=== PATIENT | female | born 1935 | race Caucasian/White ===

== ENCOUNTER 2023-06-18 14:46 | Observation (INO) ==
[2023-06-18] MEDS: Lactated Ringers 1000 ml BAG 1,000 ML IV ONE ×3 (16:42→21:24)
[2023-06-18] MEDS: Ondansetron 4 mg VIAL 2 MG/ML 2 ml VIAL IV ONE (16:44)
[2023-06-18 17:01] LABS: ABS Lymphocytes 0.6 10^3/uL (1.0-4.8); ABS Monocytes 0.3 10^3/uL (0.0-0.9); ABS Neutrophils 8.4 10^3/uL (1.5-7.6); ABS Nucleated RBC 0.02 10^3/ul; Hematocrit 44.8 % (35-45); Hemoglobin 15.5 g/dL (11.5-14.3); Lymphocyte % 6.3 %; Mean Corpuscular Hemoglobin 33.1 pg (27-33); Mean Corpuscular Hgb Conc 34.6 g/dL (31-36); Mean Corpuscular Volume 95.6 fL (80-97); Mean Platelet Volume 7.1 fL (7.5-11.2); Nucleated Red Blood Cells % 0.2 %/100WBC (0.0-0.8); Platelet Count 244 10^3/uL (150-450); Red Blood Count 4.69 10^6/uL (3.63-4.92); Red Cell Distribution Width 14.3 % (12-17); White Blood Count 9.3 10^3/uL (3.8-11.8)
[2023-06-18 17:26] LABS: High Sens Troponin Baseline 9 pg/mL (<15)
[2023-06-18 17:27] LABS: ALT 33 U/L (7-52); AST 44 U/L (13-39); Albumin 3.8 g/dL (3.2-5.2); Albumin/Globulin Ratio 1.2 (1-3); Alkaline Phosphatase 64 U/L (35-149); Anion Gap 12 mmol/L (2-16); Blood Urea Nitrogen 21 mg/dL (6-24); C Reactive Protein 9.15 mg/L (<8.01); CO2 Carbon Dioxide 23 mmol/L (22-32); Calcium 9.2 mg/dL (8.6-10.3); Chloride 103 mmol/L (101-111); Creatinine, Serum 1.01 mg/dL (0.51-0.95); Globulin 3.1 g/dL (2-4); Glucose 116 mg/dL (70-100); Magnesium 1.9 mg/dL (1.9-2.7); Potassium 4.6 mmol/L (3.5-5.0); Sodium 138 mmol/L (135-145); Total Bilirubin 0.8 mg/dL (0.2-1.0); Total Protein 6.9 g/dL (6.4-8.9); eGFR CKD-EPI 53.9 (>60)
[2023-06-18 17:50] LABS: Urine Appearance Turbid; Urine Bilirubin Negative (Negative); Urine Blood Trace (Negative); Urine Color Yellow; Urine Glucose Negative (Negative); Urine Ketones Negative (Negative); Urine Nitrite Negative (Negative); Urine Protein 1+ (>=30 mg/dL) (Negative); Urine Specific Gravity 1.018 (1.002-1.030); Urine Urobilinogen Negative (Negative)
[2023-06-18 18:15] LABS: Urine Bacteria 2+ /HPF (Absent); Urine Red Blood Cell 3+(>10/hpf) /HPF (0-Trace); Urine Squamous Epithelial Cell Present /HPF (Absent); Urine Transitional Epithelial Present /HPF (Absent); Urine White Blood Cell 3+(>20/hpf) /HPF (0-Trace)
[2023-06-18 18:43] LABS: High Sensitivity Troponin 1 Hr 8 pg/mL (<15)
[2023-06-18] MEDS: cefTRIAXone 1 gm/50 mL D5W 1 GM/50 ML BAG IV ONE (19:45)
[2023-06-18 23:39] LABS: Alcohol, S < 13 mg/dL (<13); Creatine Kinase 34 U/L (10-223)
[2023-06-19 06:12] LABS: Hematocrit 39.2 % (35-45); Hemoglobin 13.5 g/dL (11.5-14.3); Mean Corpuscular Hemoglobin 32.8 pg (27-33); Mean Corpuscular Hgb Conc 34.4 g/dL (31-36); Mean Corpuscular Volume 95.4 fL (80-97); Mean Platelet Volume 7.5 fL (7.5-11.2); Platelet Count 197 10^3/uL (150-450); Red Blood Count 4.11 10^6/uL (3.63-4.92); Red Cell Distribution Width 14.1 % (12-17); White Blood Count 9.1 10^3/uL (3.8-11.8)
[2023-06-19 06:32] LABS: Albumin 3.2 g/dL (3.2-5.2); Albumin/Globulin Ratio 1.2 (1-3); Calcium 8.4 mg/dL (8.6-10.3); Creatinine, Serum 0.86 mg/dL (0.51-0.95); Globulin 2.6 g/dL (2-4); Magnesium 1.8 mg/dL (1.9-2.7); Potassium 4.1 mmol/L (3.5-5.0); Total Bilirubin 0.9 mg/dL (0.2-1.0); Total Protein 5.8 g/dL (6.4-8.9); eGFR CKD-EPI 65.3 (>60)
[2023-06-19 09:48] VITALS: BP 100/65
[2023-06-19] MEDS: Magnesium Sulfate 2 gm BAG 2 GM/50 ML BAG IVPB ONE (10:14)
[2023-06-19] MEDS: cefTRIAXone 1 gm/50 mL D5W 1 GM/50 ML BAG IV ONE (11:36)
== END 2023-06-19 13:30 | disposition home or self-care (01) ==
LOC: EDHOLD 14:46 → ED 14:46 → SUATTDRO 19:37 → MEDTELE 21:43
PROVIDERS: ADMIT Internal Medicine; ATTEND Internal Medicine

== ENCOUNTER 2023-07-08 11:04 | Inpatient (IN) ==
[2023-07-08] MEDS: Lactated Ringers 1000 ml BAG 1,000 ML IV ONE ×2 (11:47→13:47)
[2023-07-08 12:21] LABS: ABS Lymphocytes 0.7 10^3/uL (1.0-4.8); ABS Monocytes 0.6 10^3/uL (0.0-0.9); ABS Neutrophils 5.2 10^3/uL (1.5-7.6); ABS Nucleated RBC 0.01 10^3/ul; Eosinophil % 0.1 %; Hematocrit 42.5 % (35-45); Hemoglobin 14.3 g/dL (11.5-14.3); Lymphocyte % 10.4 %; Mean Corpuscular Hgb Conc 33.8 g/dL (31-36); Mean Corpuscular Volume 97.8 fL (80-97); Mean Platelet Volume 6.8 fL (7.5-11.2); Nucleated Red Blood Cells % 0.1 %/100WBC (0.0-0.8); Platelet Count 212 10^3/uL (150-450); Red Blood Count 4.34 10^6/uL (3.63-4.92); Red Cell Distribution Width 15.6 % (12-17); White Blood Count 6.6 10^3/uL (3.8-11.8)
[2023-07-08 12:32] LABS: Activated Partial Thrombo Time 34.5 seconds (26.0-38.0); INR 1.26 (0.83-1.13)
[2023-07-08 12:51] LABS: Albumin 3.8 g/dL (3.2-5.2); Albumin/Globulin Ratio 1.4 (1-3); C Reactive Protein 16.97 mg/L (<8.01); Calcium 9.3 mg/dL (8.6-10.3); Creatinine, Serum 1.22 mg/dL (0.51-0.95); Globulin 2.8 g/dL (2-4); Total Bilirubin 1.2 mg/dL (0.2-1.0); Total Protein 6.6 g/dL (6.4-8.9)
[2023-07-08 13:06] LABS: Urine Appearance Turbid; Urine Bilirubin Negative (Negative); Urine Blood 2+ (Negative); Urine Color Yellow; Urine Glucose Negative (Negative); Urine Ketones Trace (Negative); Urine Nitrite Negative (Negative); Urine Protein Trace (Negative); Urine Specific Gravity 1.015 (1.002-1.030); Urine Urobilinogen 1+ (Negative); Urine pH 6.5 (5.0-8.0)
[2023-07-08] MEDS: Iodixanol (CONTRAST) 320 MG/ML 100 ML SDV IV ONE (13:13)
[2023-07-08 13:15] LABS: Urine Bacteria Absent /HPF (Absent); Urine Red Blood Cell 3+(>10/hpf) /HPF (0-Trace); Urine Squamous Epithelial Cell Present /HPF (Absent); Urine Transitional Epithelial Present /HPF (Absent); Urine White Blood Cell 3+(>20/hpf) /HPF (0-Trace)
[2023-07-08 14:40] LABS: High Sensitivity Troponin 1 Hr 9 pg/mL (<15)
[2023-07-08] MEDS ORDERED: Senna TAB 8.6 mg TAB PO PRN (17:28)
[2023-07-08] MEDS: Latanoprost 0.005% 2.5 ml BTL BOTH EYES SCH (21:01)
[2023-07-09 07:02] LABS: ABS Eosinophils 0.1 10^3/uL (0.0-0.5); ABS Lymphocytes 0.7 10^3/uL (1.0-4.8); ABS Monocytes 0.7 10^3/uL (0.0-0.9); ABS Neutrophils 5.6 10^3/uL (1.5-7.6); ABS Nucleated RBC 0.01 10^3/ul; Eosinophil % 0.8 %; Hematocrit 39.4 % (35-45); Hemoglobin 13.4 g/dL (11.5-14.3); Lymphocyte % 9.7 %; Mean Corpuscular Hemoglobin 32.9 pg (27-33); Mean Corpuscular Hgb Conc 33.9 g/dL (31-36); Mean Corpuscular Volume 97.1 fL (80-97); Mean Platelet Volume 6.9 fL (7.5-11.2); Nucleated Red Blood Cells % 0.1 %/100WBC (0.0-0.8); Platelet Count 177 10^3/uL (150-450); Red Blood Count 4.06 10^6/uL (3.63-4.92); Red Cell Distribution Width 15.2 % (12-17); White Blood Count 7.1 10^3/uL (3.8-11.8)
[2023-07-09] MEDS: Fluticasone NASAL SPRAY 50MCG 16 gm SPRAY BTL INTRANASAL SCH (08:34)
[2023-07-09 10:20] LABS: Anion Gap 12 mmol/L (2-16); Blood Urea Nitrogen 16 mg/dL (6-24); CO2 Carbon Dioxide 24 mmol/L (22-32); Calcium 8.2 mg/dL (8.6-10.3); Chloride 101 mmol/L (101-111); Glucose 109 mg/dL (70-100); Magnesium 1.9 mg/dL (1.9-2.7); Sodium 137 mmol/L (135-145); eGFR CKD-EPI 71.3 (>60)
[2023-07-09 12:41] LABS: Erythrocyte Sed Rate 26 mm/Hr (0-29)
[2023-07-09] MEDS ORDERED: Sulfur Hexaflouride MICROSPHR 25 MG VIAL ONE (13:05)
[2023-07-09 14:32] LABS: Rheumatoid Factor < 10 IU/mL (<15)
[2023-07-09 15:12] LABS: Free T4 1.48 ng/dL (0.61-1.12); TSH Ultra Thyroid Stim Horm 1.54 mcIU/mL (0.34-5.60)
[2023-07-10 06:14] LABS: Hematocrit 39.8 % (35-45); Hemoglobin 13.7 g/dL (11.5-14.3); Mean Corpuscular Hemoglobin 33.4 pg (27-33); Mean Corpuscular Hgb Conc 34.4 g/dL (31-36); Mean Corpuscular Volume 97.1 fL (80-97); Platelet Count 159 10^3/uL (150-450); Red Cell Distribution Width 15.4 % (12-17); White Blood Count 5.2 10^3/uL (3.8-11.8)
[2023-07-10 06:47] LABS: Calcium 8.6 mg/dL (8.6-10.3); Creatinine, Serum 0.9 mg/dL (0.51-0.95); Magnesium 1.9 mg/dL (1.9-2.7); Potassium 3.9 mmol/L (3.5-5.0); eGFR CKD-EPI 61.9 (>60)
[2023-07-10] MEDS: Potassium Chlor 10 meq TAB PO ONE (08:53)
[2023-07-10] MEDS: Lactated Ringers 1000 ml BAG 1,000 ML IV SCH (14:56)
[2023-07-11 06:19] LABS: ABS Eosinophils 0.1 10^3/uL (0.0-0.5); ABS Monocytes 0.8 10^3/uL (0.0-0.9); ABS Neutrophils 3.8 10^3/uL (1.5-7.6); ABS Nucleated RBC 0.01 10^3/ul; Eosinophil % 1.9 %; Hemoglobin 13.2 g/dL (11.5-14.3); Mean Corpuscular Hemoglobin 33.7 pg (27-33); Mean Corpuscular Hgb Conc 34.6 g/dL (31-36); Mean Corpuscular Volume 97.4 fL (80-97); Mean Platelet Volume 7.1 fL (7.5-11.2); Nucleated Red Blood Cells % 0.2 %/100WBC (0.0-0.8); Platelet Count 165 10^3/uL (150-450); Red Cell Distribution Width 15.6 % (12-17); White Blood Count 5.8 10^3/uL (3.8-11.8)
[2023-07-11 06:58] LABS: Calcium 8.6 mg/dL (8.6-10.3); Creatinine, Serum 0.95 mg/dL (0.51-0.95); Magnesium 1.9 mg/dL (1.9-2.7); Potassium 4.5 mmol/L (3.5-5.0)
[2023-07-11] MEDS: Magnesium Sulfate IV 1GM/100ML 1 GM/100 ML BAG IV ONE (08:19)
[2023-07-12] MEDS: Pneumococcal 20-Valent Conj 0.5 ML SYR Vaccine IM ONE (10:23)
[2023-07-14 06:17] LABS: Calcium 8.5 mg/dL (8.6-10.3); Creatinine, Serum 0.9 mg/dL (0.51-0.95); Magnesium 2.4 mg/dL (1.9-2.7); Potassium 4.6 mmol/L (3.5-5.0); eGFR CKD-EPI 61.9 (>60)
[2023-07-15 05:47] LABS: Calcium 8.6 mg/dL (8.6-10.3); Creatinine, Serum 0.98 mg/dL (0.51-0.95); Potassium 4.7 mmol/L (3.5-5.0); eGFR CKD-EPI 55.9 (>60)
[2023-07-15 10:14] VITALS: BP 106/62
== END 2023-07-15 14:06 | disposition home or self-care (01) | DRG 312 ==
LOC: ED 11:04 → EDHOLD 11:04 → SUATTDRO 16:24 → MED 19:17 → SUATTDRO 07-10 13:52 → MEDTELE 07-13 18:11
PROVIDERS: ADMIT Internal Medicine; ATTEND Internal Medicine

== ENCOUNTER 2023-12-11 13:43 | Observation (INO) ==
[2023-12-11 14:52] LABS: ABS Lymphocytes 0.8 10^3/uL (1.0-4.8); ABS Monocytes 0.7 10^3/uL (0.0-0.9); ABS Neutrophils 10.5 10^3/uL (1.5-7.6); Eosinophil % 0.1 %; Hematocrit 41.7 % (35-45); Hemoglobin 13.5 g/dL (11.5-14.3); Lymphocyte % 6.5 %; Mean Corpuscular Hemoglobin 33.3 pg (27-33); Mean Corpuscular Hgb Conc 32.4 g/dL (31-36); Mean Corpuscular Volume 102.6 fL (80-97); Mean Platelet Volume 7.5 fL (7.5-11.2); Platelet Count 182 10^3/uL (150-450); Red Blood Count 4.06 10^6/uL (3.63-4.92)
[2023-12-11 15:36] LABS: ALT 24 U/L (7-52); Albumin 2.6 g/dL (3.2-5.2); Albumin/Globulin Ratio 1.5 (1-3); Alkaline Phosphatase 30 U/L (35-149); Blood Urea Nitrogen 13 mg/dL (6-24); CO2 Carbon Dioxide 19 mmol/L (22-32); Chloride 119 mmol/L (101-111); Creatinine, Serum 0.62 mg/dL (0.51-0.95); Globulin 1.7 g/dL (2-4); Glucose 83 mg/dL (70-100); Sodium 146 mmol/L (135-145); Total Bilirubin 0.6 mg/dL (0.2-1.0); Total Protein 4.3 g/dL (6.4-8.9); eGFR CKD-EPI 85.6 (>60)
[2023-12-11 15:37] LABS: Anion Gap 8 mmol/L (2-16)
[2023-12-11 15:38] LABS: Calcium 5.8 mg/dL (8.6-10.3)
[2023-12-11 16:45] LABS: Anion Gap 10 mmol/L (2-16); Blood Urea Nitrogen 18 mg/dL (6-24); CO2 Carbon Dioxide 24 mmol/L (22-32); Chloride 109 mmol/L (101-111); Creatinine, Serum 0.97 mg/dL (0.51-0.95); Glucose 123 mg/dL (70-100); Sodium 143 mmol/L (135-145)
[2023-12-11 16:46] LABS: Calcium 8.4 mg/dL (8.6-10.3); Magnesium 1.7 mg/dL (1.9-2.7); eGFR CKD-EPI 56.2 (>60)
[2023-12-11 16:59] LABS: Urine Appearance Extra Turbid; Urine Bilirubin Negative (Negative); Urine Blood 2+ (Negative); Urine Glucose Negative (Negative); Urine Ketones Negative (Negative); Urine Nitrite 2+ (Negative); Urine Protein 2+ (>=100 mg/dL) (Negative); Urine Specific Gravity 1.016 (1.002-1.030); Urine Urobilinogen Negative (Negative); Urine pH 5.5 (5.0-8.0)
[2023-12-11 17:14] LABS: Urine Bacteria Absent /HPF (Absent); Urine Red Blood Cell 3+(>10/hpf) /HPF (0-Trace); Urine White Blood Cell 3+(>20/hpf) /HPF (0-Trace)
[2023-12-11 17:15] LABS: Urine Color Light-Yellow
[2023-12-11] MEDS: cefTRIAXone 1 gm/50 mL D5W 1 GM/50 ML BAG IV ONE (17:17)
[2023-12-11] MEDS: Lactated Ringers 1000 ml BAG 1,000 ML IV ONE (17:17)
[2023-12-12 00:04] LABS: Magnesium 1.7 mg/dL (1.9-2.7); Potassium Redraw 4.8 mmol/L (3.5-5.0)
[2023-12-12] MEDS: Magnesium Sulfate 2 gm BAG 2 GM/50 ML BAG IVPB ONE (04:55)
[2023-12-12 05:33] LABS: C Reactive Protein 18.23 mg/L (<8.01)
[2023-12-12 06:02] LABS: ABS Lymphocytes 1.4 10^3/uL (1.0-4.8); ABS Monocytes 0.8 10^3/uL (0.0-0.9); ABS Neutrophils 7.3 10^3/uL (1.5-7.6); Eosinophil % 0.4 %; Hematocrit 38.1 % (35-45); Hemoglobin 13.1 g/dL (11.5-14.3); Lymphocyte % 14.5 %; Mean Corpuscular Hemoglobin 34.4 pg (27-33); Mean Corpuscular Hgb Conc 34.4 g/dL (31-36); Mean Corpuscular Volume 99.8 fL (80-97); Mean Platelet Volume 7.6 fL (7.5-11.2); Platelet Count 155 10^3/uL (150-450); Red Blood Count 3.82 10^6/uL (3.63-4.92); Red Cell Distribution Width 14.6 % (12-17); White Blood Count 9.6 10^3/uL (3.8-11.8)
[2023-12-12] MEDS: Lactated Ringers 1000 ml BAG 1,000 ML IV ONE (06:22)
[2023-12-12 07:12] LABS: Calcium 8.1 mg/dL (8.6-10.3); Creatinine, Serum 0.99 mg/dL (0.51-0.95); Magnesium 2.1 mg/dL (1.9-2.7); Potassium 4.1 mmol/L (3.5-5.0); eGFR CKD-EPI 54.8 (>60)
[2023-12-12] MEDS: Fluticasone NASAL SPRAY 50MCG 16 gm SPRAY BTL INTRANASAL SCH (09:49)
[2023-12-12] MEDS: NF: Estradiol VAG CM (NF) 1 APPLIC TUBE VAGINAL SCH (10:14)
[2023-12-12] MEDS ORDERED: cefTRIAXone 1 gm/50 mL D5W 1 GM/50 ML BAG IV SCH (17:00)
[2023-12-12] MEDS: cefTRIAXone 1 gm/50 mL D5W 1 GM/50 ML BAG IV SCH (17:22)
[2023-12-12] MEDS: Latanoprost 0.005% 2.5 ml BTL BOTH EYES SCH (22:32)
[2023-12-13] MEDS: Magnesium Hydroxide LIQ 30 ML UDC PO PRN (02:11)
[2023-12-14 09:00] VITALS: BP 100/66
== END 2023-12-14 12:15 | disposition short-term general hospital (02) ==
LOC: ED 13:43 → EDHOLD 13:43 → MED 12-12 12:30
PROVIDERS: ADMIT Student in an Organized Health Care Education/Training Program; ATTEND Internal Medicine

== ENCOUNTER 2024-03-10 06:41 | Inpatient (IN) ==
[2024-03-10] MEDS: Iodixanol 320 (CONTRAST) 100 ML SDV IV ONE (08:10)
[2024-03-10] MEDS: Acetaminophen IV 1 GM/100ML 1,000 MG/100 ML BAG IV ONE (08:24)
[2024-03-10 08:39] LABS: ABS Lymphocytes 0.8 10^3/uL (1.0-4.8); ABS Monocytes 0.8 10^3/uL (0.0-0.9); ABS Neutrophils 12.5 10^3/uL (1.5-7.6); ABS Nucleated RBC 0.01 10^3/ul; Eosinophil % 0.2 %; Hematocrit 37.8 % (35-45); Hemoglobin 12.8 g/dL (11.5-14.3); Lymphocyte % 5.5 %; Mean Corpuscular Hemoglobin 33.9 pg (27-33); Mean Corpuscular Hgb Conc 33.8 g/dL (31-36); Mean Corpuscular Volume 100.3 fL (80-97); Mean Platelet Volume 7.6 fL (7.5-11.2); Platelet Count 213 10^3/uL (150-450); Red Blood Count 3.77 10^6/uL (3.63-4.92); Red Cell Distribution Width 15.5 % (12-17); White Blood Count 14.1 10^3/uL (3.8-11.8)
[2024-03-10 09:03] LABS: High Sens Troponin Baseline 8 pg/mL (<15)
[2024-03-10] MEDS: cefTRIAXone 1 gm/50 mL D5W 1 GM/50 ML BAG IV ONE (09:05)
[2024-03-10] MEDS: Azithromycin 500 mg/250 ml NS 500 MG/250 ML BAG IVPB ONE (09:24)
[2024-03-10] MEDS ORDERED: Fluticasone NASAL SPRAY 50MCG 16 gm SPRAY BTL INTRANASAL PRN (09:43)
[2024-03-10 09:50] LABS: ALT 20 U/L (7-52); Albumin 3.6 g/dL (3.5-5.7); Albumin/Globulin Ratio 1.3 (1-3); Alkaline Phosphatase 48 U/L (35-149); Anion Gap 15 mmol/L (2-16); Blood Urea Nitrogen 31 mg/dL (6-24); C Reactive Protein 88.64 mg/L (<8.01); CO2 Carbon Dioxide 22 mmol/L (22-32); Calcium 9.2 mg/dL (8.6-10.3); Chloride 105 mmol/L (101-111); Creatinine, Serum 1.19 mg/dL (0.51-0.95); Globulin 2.7 g/dL (2-4); Glucose 105 mg/dL (70-100); Sodium 142 mmol/L (135-145); TSH Ultra Thyroid Stim Horm 1.84 mcIU/mL (0.34-5.60); Total Bilirubin 0.8 mg/dL (0.2-1.0); Total Protein 6.3 g/dL (6.4-8.9)
[2024-03-10] MEDS: Lactated Ringers 1000 ml BAG 1,000 ML IV ONE (10:15)
[2024-03-10 10:37] LABS: Magnesium 2.3 mg/dL (1.9-2.7)
[2024-03-10 13:10] LABS: Urine Appearance Turbid; Urine Bacteria Absent /HPF (Absent); Urine Bilirubin Negative (Negative); Urine Blood Trace (Negative); Urine Color Yellow; Urine Glucose Negative (Negative); Urine Ketones Trace (Negative); Urine Nitrite 2+ (Negative); Urine Protein 2+ (>=100 mg/dL) (Negative); Urine Red Blood Cell 3+(>10/hpf) /HPF (0-Trace); Urine Specific Gravity >1.050 (1.002-1.030); Urine Squamous Epithelial Cell Present /HPF (Absent); Urine Urobilinogen 1+ (Negative); Urine White Blood Cell 3+(>20/hpf) /HPF (0-Trace); Urine pH 7.5 (5.0-8.0)
[2024-03-10] MEDS: Latanoprost 0.005% 2.5 ml BTL BOTH EYES SCH (19:54)
[2024-03-11 06:08] LABS: ABS Basophils 0.1 10^3/uL (0.0-0.1); ABS Eosinophils 0.1 10^3/uL (0.0-0.5); ABS Lymphocytes 1.2 10^3/uL (1.0-4.8); ABS Monocytes 0.9 10^3/uL (0.0-0.9); Eosinophil % 0.6 %; Hematocrit 36.3 % (35-45); Hemoglobin 12.3 g/dL (11.5-14.3); Lymphocyte % 9.9 %; Mean Corpuscular Hemoglobin 33.7 pg (27-33); Mean Corpuscular Hgb Conc 33.8 g/dL (31-36); Mean Corpuscular Volume 99.7 fL (80-97); Mean Platelet Volume 7.7 fL (7.5-11.2); Platelet Count 190 10^3/uL (150-450); Red Blood Count 3.64 10^6/uL (3.63-4.92); White Blood Count 12.3 10^3/uL (3.8-11.8)
[2024-03-11 07:39] LABS: Calcium 8.6 mg/dL (8.6-10.3); Creatinine, Serum 1.05 mg/dL (0.51-0.95); Potassium 4.1 mmol/L (3.5-5.0); eGFR CKD-EPI 51.1 (>60)
[2024-03-11] MEDS: CMC:Solifenacin 5 mg TAB (NF) PO SCH (08:33)
[2024-03-11] MEDS: cefTRIAXone 1 gm/50 mL D5W 1 GM/50 ML BAG IV SCH (08:34)
[2024-03-11] MEDS ORDERED: cefTRIAXone 1 gm/50 mL D5W 1 GM/50 ML BAG IV SCH (09:00)
[2024-03-11] MEDS ORDERED: Azithromycin 500 mg/250 ml NS 500 MG/250 ML BAG IVPB SCH (09:30)
[2024-03-11] MEDS: Azithromycin 500 mg/250 ml NS 500 MG/250 ML BAG IVPB SCH (09:49)
[2024-03-13] MEDS: Lidocaine PATCH 5% PATCH TRANSDERM SCH (21:23)
[2024-03-14 06:47] LABS: ABS Eosinophils 0.2 10^3/uL (0.0-0.5); ABS Lymphocytes 1.6 10^3/uL (1.0-4.8); ABS Monocytes 0.9 10^3/uL (0.0-0.9); ABS Nucleated RBC 0.01 10^3/ul; Eosinophil % 3.1 %; Hematocrit 38.4 % (35-45); Hemoglobin 13.4 g/dL (11.5-14.3); Lymphocyte % 20.3 %; Mean Corpuscular Hemoglobin 34.7 pg (27-33); Mean Corpuscular Hgb Conc 34.8 g/dL (31-36); Mean Corpuscular Volume 99.5 fL (80-97); Mean Platelet Volume 7.1 fL (7.5-11.2); Nucleated Red Blood Cells % 0.1 %/100WBC (0.0-0.8); Platelet Count 206 10^3/uL (150-450); Red Blood Count 3.86 10^6/uL (3.63-4.92); Red Cell Distribution Width 15.3 % (12-17); White Blood Count 7.8 10^3/uL (3.8-11.8)
[2024-03-14 06:59] LABS: Calcium 8.7 mg/dL (8.6-10.3); Creatinine, Serum 1.08 mg/dL (0.51-0.95); Potassium 4.1 mmol/L (3.5-5.0); eGFR CKD-EPI 49.4 (>60)
[2024-03-15 13:10] VITALS: BP 154/100
== END 2024-03-15 14:15 | DRG 194 ==
LOC: ED 06:41 → INTOOBSV 09:41 → EDHOLD 09:41 → MED 13:05 → SUATTDRO 03-11 12:00
PROVIDERS: ADMIT Student in an Organized Health Care Education/Training Program; ATTEND Student in an Organized Health Care Education/Training Program